=== PATIENT | female | born 1985 | race Caucasian/White ===

== ENCOUNTER 2018-08-01 20:34 | Emergency (ER) | payer OTHER ==
[~2018-08-01] VITALS: Ht 167.6 cm; Wt 102.1 kg
[2018-08-01] MEDS ORDERED: LISINOPRIL10 MG PO (20:48)
[2018-08-01] MEDS ORDERED: ZOLOFT50 MG PO (20:49)
[2018-08-01] MEDS ORDERED: XANAX 0.5 MG0.5 MG PO (20:49)
[2018-08-01] MEDS ORDERED: DOXYCYCLINE 10100 MG PO (20:56)
[2018-08-01 21:15] VITALS: BP 135/96
== END 2018-08-01 21:15 | disposition home or self-care (01) ==
LOC: M.ERS 20:34
DX: L03.312 Cellulitis of back [any part except buttock and flank] (principal); I10 Essential (primary) hypertension; M79.7 Fibromyalgia